=== PATIENT | female | born 1990 | race Caucasian/White ===

== ENCOUNTER 2017-04-27 17:58 | Emergency (ER) | payer MEDICAID, OTHER ==
[~2017-04-27] VITALS: Wt 72.0 kg
[2017-04-27 19:30] LABS: BASOPHILS % 0.4 % (0.0-2.0); EOSINOPHILS # 0.1 10^3/ul (0.0-0.5); EOSINOPHILS % 0.9 % (0.0-7.0); HEMATOCRIT 39.8 % (37.0-47.0); HEMOGLOBIN 13.7 g/dl (12.0-16.0); LYMPHOCYTES # 2.8 10^3/ul (0.8-2.9); MEAN CORPUSCULAR HEMOGLOBIN 31.1 pg (29.0-33.0); MEAN CORPUSCULAR HGB CONC 34.4 g/dl (32.0-37.0); MEAN CORPUSCULAR VOLUME 90.2 fl (82.0-101.0); MEAN PLATELET VOLUME 10.7 fl (7.4-10.4); MONOCYTE # 0.6 10^3/ul (0.3-0.9); MONOCYTES % 5.7 % (0.0-11.0); NEUTROPHILS % 64.7 % (39.0-77.0); PLATELET COUNT 275 10^3/UL (140-415); RED BLOOD COUNT 4.41 10^6/ul (4.20-5.40); RED CELL DISTRIBUTION WIDTH 12.1 % (11.5-14.5)
[2017-04-27 19:49] LABS: CREATININE 0.84 mg/dl (0.44-1.00); POTASSIUM 4.3 mmol/L (3.5-5.1)
--- NOTE | 2017-04-27 20:22 | RADRPT ---
PROCEDURE: CT Brain without contrast. CLINICAL INDICATION: dizziness TECHNIQUE: A CT of the brain was performed on a GE [employer] 64-slice CT scanner utilizing axial imaging from the skull base through the vertex without IV contrast. Multiplanar reformatted images were made. Images were reviewed on a PACS workstation. The CTDIvol is 43.14 mGy and the DLP is 824 .29 mGycm. COMPARISON: None FINDINGS: There is no intracranial hemorrhage, mass effect, or midline shift. No extra-axial fluid collection is seen. The ventricles and sulci are normal in size and configuration. The density of the brain is normal, and the warren white matter differentiation appears well-preserved. The visualized paranasal sinuses and osseous structures are grossly unremarkable. IMPRESSION: No evidence of acute intracranial pathology. RPTAT: QQ Physician Gilberto Date Time Electronically viewed and signed by Physician Gilberto on 04/27/2017 20:22 JACQUELINE/
[2017-04-27] MEDS ORDERED: MECL12.574 PO (20:47)
--- NOTE | 2017-04-27 21:14 | ERD ---
ER Documentation Chief Complaint Date/Time DATE: 04/27/17 TIME: 21:07 Chief Complaint HEADACHE, DIZZINESS HPI This patient is a 26-year-old female with no significant medical history presenting to the emergency department with complaints of dizziness which began at 2 PM today. She also feels tingling to the right side of her face and her head. She denies fall, trauma, head pain, or other symptoms. Symptoms have been constant for 5 hours. She is taken no medication for relief of symptoms. She denies urinary symptoms, shortness of breath, chest pain, abdominal pain, or other symptoms. ROS All systems reviewed and are negative except as per history of present illness. Medications Home Meds Active Scripts Meclizine Hcl* (Antivert*) 12.5 Mg Tab, 12.5 MG PO Q6H Y for DIZZINESS, #20 TAB Prov:ELIE CUI PA-C 04/27/17 Allergies Allergies: Coded Allergies: No Known Allergy (Unverified , 04/27/17) PMhx/Soc Medical and Surgical Hx: pt denies Medical Hx, pt denies Surgical Hx Hx Alcohol Use: No Hx Substance Use: No Hx Tobacco Use: No Smoking Status: Never smoker Physical Exam Vitals Vital Signs Date Time Temp Pulse Resp B/P Pulse Ox O2 Delivery O2 Flow Rate FiO2 04/27/17 18:00 98.9 89 18 123/91 98 Physical Exam Const: Nontoxic, well-appearing female in no acute distress. Head: Atraumatic Eyes: Normal Conjunctiva ENT: Normal External Ears, Nose and Mouth. Neck: Full range of motion..~ No meningismus. Resp: Clear to auscultation bilaterally Cardio: Regular rate and rhythm, no murmurs Abd: Soft, non tender, non distended. Normal bowel sounds Skin: No petechiae or rashes Back: No midline or flank tenderness Ext: No cyanosis, or edema Neur: Awake and alert. Cranial nerves are intact. Strength and sensation intact bilateral upper extremities. Psych: Normal Mood and Affect Result Diagram: 04/27/17189904/27/171899 Results 24 hrs Laboratory Tests Test 04/27/17 19:00 White Blood Count 10.010^3/ul Red Blood Count 4.4110^6/ul Hemoglobin 13.7g/dl Hematocrit 39.8% Mean Corpuscular Volume 90.2fl Mean Corpuscular Hemoglobin 31.1pg Mean Corpuscular Hemoglobin Concent 34.4g/dl Red Cell Distribution Width 12.1% Platelet Count 63385^3/UL Mean Platelet Volume 10.7fl Neutrophils % 64.7% Lymphocytes % 28.0% Monocytes % 5.7% Eosinophils % 0.9% Basophils % 0.4% Nucleated Red Blood Cells % 0.0/100WBC Neutrophils # (Manual) 610^3/ul Lymphocytes # 2.810^3/ul Monocytes # 0.610^3/ul Eosinophils # 0.110^3/ul Basophils # 0.010^3/ul Nucleated Red Blood Cells # 0.010^3/ul Sodium Level 141mmol/L Potassium Level 4.3mmol/L Chloride Level 101mmol/L Carbon Dioxide Level 27mmol/L Anion Gap 17 Blood Urea Nitrogen 10mg/dl Creatinine 0.84mg/dl Glucose Level 86mg/dl Calcium Level 10.0mg/dl Procedures/MDM 26-year-old female presenting to the emergency department with complaints of dizziness and tingling to the right side of her head and face. The patient was given p.o. meclizine in the department. She was feeling improved on reevaluation. Imaging: PROCEDURE: CT Brain without contrast. CLINICAL INDICATION: dizziness TECHNIQUE: A CT of the brain was performed on a [employer] 64-slice CT scanner utilizing axial imaging from the skull base through the vertex without IV contrast. Multiplanar reformatted images were made. Images were reviewed on a PACS workstation. The CTDIvol is 43.14 mGy and the DLP is 824.29 mGycm. COMPARISON: None FINDINGS: There is no intracranial hemorrhage, mass effect, or midline shift. No extra- axial fluid collection is seen. The ventricles and sulci are normal in size and configuration. The density of the brain is normal, and the warren white matter differentiation appears well-preserved. The visualized paranasal sinuses and osseous structures are grossly unremarkable. IMPRESSION: No evidence of acute intracranial pathology. RPTAT: QQ Physician Gilberto Date Time Electronically viewed and signed by Physician Gilberto on 04/27/2017 20: 22 RC/ CC: ELIE CUI PA-C There is no apparent reason for her dizziness after workup in the department. CBC and BMP was within normal limits. The patient was stable for discharge with a prescription for meclizine. Low suspicion for intracranial hemorrhage or mass, TIA, CVA, acute coronary syndrome, or others. She agreed with the discharge plan and diagnosis. All questions and concerns were addressed. Close follow-up with primary care physician was advised. Strict ER return precautions were discussed Departure Diagnosis: Primary Impression: Dizziness Condition: Fair Patient Instructions: Possible Causes of Dizziness or Fainting Referrals: [facility] ted se white hecho un examen mdico de control que le indica que no est en [place] condicin que requiera tratamiento urgente en el Departamento de Emergencia. Un estudio ms profundo y el tratamiento de chapin condicin pueden esperar sin ningn riesgo hasta que usted sea atendida/o en el consultorio de chapin mdico o [place] cl jimmie. Es responsabilidad suya arreglar [place] para el seguimiento del arline. MANEJO DE CONDICIONES NO URGENTES EN EL FUTURO 1) Si usted tiene un mdico de atencin primaria: Usted debera llamar a chapin mdico de atencin primaria antes de venir al departamento de emergencia. Despus de las horas de consultorio, chapin doctor o chapin asociado/a est disponible por telfono. El mdico o enfermero de ramila en el servicio telefnico puede asesorarle por balaji medio para atender el problema, o arline contrario se puede programar [place]. 2) Si usted no tiene un mdico de atencin primaria: Llame al mdico o clnica de referencia que aparece abajo jeffrey las horas de consultorio para hacer [place] para que le vean. CLINICAS: [facility] [phone] [facility] [phone] [facility] [phone] [place] [phone] [place] [address] [phone] [place] [phone] [address] Additional Instructions: No mas mejor en 2-3 de los santos, regresar. Mas peor en 24 horas, regresear rapidamente. Ir a doctor primario in 5-7 de los santos. Usar instrucciones cuando judith medicamento. ELIE CUI PA-C Apr 27, 2017 21:14
[2017-04-27 21:26] VITALS: BP 125/78; PULSE 70; RESP 16
== END 2017-04-27 21:26 | disposition home or self-care (01) ==
LOC: FTE 17:58
DX: R42 Dizziness and giddiness (principal)
CPT/HCPCS: 70450; 80048; 85025; Z7502